=== PATIENT | female | born 1995 | race Two or more races ===

== ENCOUNTER 2019-03-10 18:04 | Emergency (ER) | payer OTHER ==
[~2019-03-10] VITALS: Ht 160 cm; Wt 96.2 kg
[2019-03-10] MEDS ORDERED: PRENATE ELITE1 EAC2 PO (18:22)
== END 2019-03-10 23:42 | disposition home or self-care (01) ==
LOC: ER 18:04
DX: O21.8 Other vomiting complicating pregnancy (principal); Z34.01 Encounter for supervision of normal first pregnancy, first trimester

== ENCOUNTER 2022-08-18 15:33 | Emergency (ER) | payer OTHER ==
[~2022-08-18] VITALS: Ht 157.5 cm; Wt 104.3 kg
[~2022-08-18 15:33] MED LIST: PRENATE ELITE1 EAC2 PO
== END 2022-08-18 19:47 | disposition home or self-care (01) ==
LOC: ER 15:33
DX: O20.9 Hemorrhage in early pregnancy, unspecified (principal); Z3A.01 Less than 8 weeks gestation of pregnancy; D64.9 Anemia, unspecified

== ENCOUNTER 2022-08-27 08:22 | Inpatient (IN) | payer OTHER ==
[~2022-08-27] VITALS: Ht 160 cm; Wt 96.2 kg
--- NOTE | 2022-08-27 08:34 | NUR ---
PACIENTE EMBARAZADA DE 2 SEMANAS REFIERE TENGO DIARREAS, VOMITOS Y DOLOR ABDOMINAL DESDE EL VIERNES. PACIENTE REFIERE NO TENER GINECOLOGO AUN. SE UBICA A PACIENTE EN ANA HEIDI 9.
--- NOTE | 2022-08-27 08:41 | NUR ---
SE REALIZA ADMINISTRACION DE MEDICAMENTO TYLENOL PARA FIEBRE A PACIENTE. SE ORIENTA A LA MISMA SOBRE USO Y EFECTO Y NO REFIERE QUEJA ALGUNA.
--- NOTE | 2022-08-27 09:38 | NUR ---
ELIZABET SMITH ORIENTA PTE SOBRE EL TRATAMIENTO ORDENADO POR EL DR WATKINS PTE ALERTA Y ORIENTADO POR 3, ELIZABET NAVA REALIZA MUESTRAS DE LABORATORIO Y ADMINISTRA MEDICAMENTO KEN ORDENADO PTE SE MANTIENE EN OBSERVACION Y BAJO TRATAMIENTO.
[2022-09-07] MEDS ORDERED: AMOX-CLAV 875-1 EACH PO (16:44)
== END 2022-09-07 17:28 | disposition home or self-care (01) | DRG 690 ==
LOC: ER 08:22 → MEDI 17:06 → SEC-K 17:06 → MEDI 17:30
PROVIDERS: ADMIT Internal Medicine; ATTEND Internal Medicine
PROC: BU4CZZZ Ultrasonography of Uterus and Ovaries (ICD-10-PCS; principal; 2022-08-27)
PROC: BW21YZZ Computerized Tomography (CT Scan) of Abdomen and Pelvis using Other Contrast (ICD-10-PCS; 2022-08-28)
PROC: 30233N1 Transfusion of Nonautologous Red Blood Cells into Peripheral Vein, Percutaneous Approach (ICD-10-PCS; 2022-08-28)
PROC: BW30ZZZ Magnetic Resonance Imaging (MRI) of Abdomen (ICD-10-PCS; 2022-08-30)
PROC: 0W9F3ZZ Drainage of Abdominal Wall, Percutaneous Approach (ICD-10-PCS; 2022-09-04)
DX: N15.1 Renal and perinephric abscess (principal); N17.8 Other acute kidney failure; D50.0 Iron deficiency anemia secondary to blood loss (chronic); D72.828 Other elevated white blood cell count; N39.0 Urinary tract infection, site not specified; E87.6 Hypokalemia
CPT/HCPCS: 74182

== ENCOUNTER 2023-03-30 22:36 | Emergency (ER) | payer OTHER ==
[~2023-03-30] VITALS: Ht 157.5 cm; Wt 99.8 kg
[~2023-03-30 22:36] MED LIST changes: +AMOX-CLAV 875-1 EACH PO
[2023-03-31 01:31] LABS: HEMATOCRIT 36.1 % (36.0-45.00); HEMOGLOBIN 11.9 g/dL (12.0-15.00); MEAN CELL VOLUME 80.4 fL (80.00-100.00); MEAN CORPUSCULAR HEMOGLOBIN 26.5 pg (27.00-32.0); MEAN CORPUSCULAR HGB CONC 32.9 g/dl (32.0-36.0); PLATELET COUNT 278 K/uL (150-450); RED BLOOD COUNT 4.49 M/uL (4.00-6.00); RED CELL DISTRIBUTION WIDTH 14.2 % (11.5-14.5)
[2023-03-31 01:43] LABS: PH,URINE 6.5 (5.0-8.0); URINE APPEARANCE Clear; URINE BILIRRUBIN Negative (NEGATIVE); URINE BLOOD Large; URINE COLOR Yellow; URINE GLUCOSE Negative (NEGATIVE); URINE LEUKOCYTE Negative; URINE NITRATE Negative; URINE PROTEIN Negative (NEGATIVE)
[2023-03-31 01:47] LABS: URINE BACTERIA 31.4 uL (0.0-1933); URINE RBC 1283.5 uL (0.0-20.8); URINE WBC 8.4 uL (0.0-23.2)
[2023-03-31 01:52] LABS: INR 0.96; PARTIAL THROMBOPLASTIN TIME 29.1 SECONDS (22.0-34.0); PROTHROMBIN TIME 10.1 SECONDS (9.0-11.5)
[2023-03-31 01:56] LABS: URINE EPITHELIAL CELLS 0.4 uL (0.0-38.8)
[2023-03-31 02:04] LABS: CALCIUM 9.1 mg/dL (8.5-10.1); CREATININE SERUM 0.86 mg/dL (0.55-1.02); GFR 77.48; POTASSIUM 3.7 mEq/L (3.5-5.1)
== END 2023-03-31 04:53 | disposition home or self-care (01) ==
LOC: ER 22:36
PROVIDERS: General Practice
DX: O20.8 Other hemorrhage in early pregnancy (principal); Z3A.01 Less than 8 weeks gestation of pregnancy; N93.9 Abnormal uterine and vaginal bleeding, unspecified

== ENCOUNTER 2025-04-11 19:06 | Emergency (ER) | payer OTHER ==
[~2025-04-11] VITALS: Ht 157.5 cm; Wt 108.9 kg
[2025-04-11] MEDS ORDERED: KETOROLAC TROMETHAMINE 60 MG VIAL IM ONE (20:45)
[2025-04-11] MEDS ORDERED: CEFTRIAXONE SODIUM 1,000 MG VIAL IV ONE (20:45)
[2025-04-11 21:25] LABS: BASO % 0.3 % (0.1-1.2); EOS # 0.03 (0.04-0.54); EOS % 0.3 % (0.7-7.0); LYMPH # 1.87 (1.18-3.74); LYMPH % 17.0 % (19.3-53.1); MEAN PLATELET VOLUME 10.20 fl (9.4-12.4); MONO # 1.14 (0.24-0.82); MONO % 10.4 % (4.7-12.5); NEUT # 7.91 (1.56-6.13); NEUT % 71.7 % (34.0-71.1); RED CELL DISTRIBUTION WIDTH 17.5 % (11.6-14.4)
[2025-04-11 21:26] LABS: COVID-19 AG NEGATIVE (NEGATIVE)
[2025-04-11] MEDS ORDERED: NORFLEX100MG PO (21:47)
[2025-04-11] MEDS ORDERED: ZITHROMAX500 MG PO (21:47)
[2025-04-11] MEDS ORDERED: PEPCID AC20 MG PO (21:47)
[2025-04-11] MEDS ORDERED: CEFUROXIME500 MG PO (21:50)
== END 2025-04-11 22:04 | disposition home or self-care (01) ==
LOC: ER 19:06
PROVIDERS: General Practice
DX: R50.9 Fever, unspecified (principal); J02.9 Acute pharyngitis, unspecified; M79.18 Myalgia, other site; Z20.822 Contact with and (suspected) exposure to COVID-19